=== PATIENT | male | born 1995 | race Caucasian/White ===

== ENCOUNTER 2021-12-11 02:14 | Emergency (ER) | payer OTHER ==
[~2021-12-11] VITALS: Ht 180.3 cm; Wt 77.0 kg
[2021-12-11] MEDS ORDERED: DERMABOND TOPICAL SKIN ADHESIVE TOP ONE (03:30)
[2021-12-11] MEDS ORDERED: LIDOCAINE W/EPINEPHRINE 1% 20ML VIAL SC ONE (03:30)
[2021-12-11] MEDS ORDERED: WELLTAB38 PO (04:05)
[2021-12-11 04:45] VITALS: BP 132/84
[2021-12-11] MEDS ORDERED: LEXA1TAB PO (07:10)
[2021-12-12] MEDS ORDERED: UNRESOLVED CLARIFICATION ENTRY XX SCH (00:01)
== END 2021-12-11 04:52 | disposition left against medical advice (07) ==
LOC: EDBD 02:14 → M ED 02:14
DX: S01.512A Laceration without foreign body of oral cavity, initial encounter (principal); V47.5XXA Car driver injured in collision with fixed or stationary object in traffic accident, initial encounter; Y92.410 Unspecified street and highway as the place of occurrence of the external cause; R93.0 Abnormal findings on diagnostic imaging of skull and head, not elsewhere classified; Z79.899 Other long term (current) drug therapy

== ENCOUNTER 2021-12-11 06:51 | Emergency (ER) | payer OTHER ==
[~2021-12-11] VITALS: Ht 185.4 cm; Wt 72.7 kg
[2021-12-11 06:51] VITALS: BP 135/80
[~2021-12-11 06:51] MED LIST: WELLTAB38 PO
[2021-12-11] MEDS ORDERED: LEXA1TAB PO (07:10)
== END 2021-12-11 07:46 | disposition left against medical advice (07) ==
LOC: M ED 06:51
DX: Z53.21 Procedure and treatment not carried out due to patient leaving prior to being seen by health care provider (principal)

== ENCOUNTER 2021-12-11 09:40 | Emergency (ER) | payer OTHER ==
[~2021-12-11] VITALS: Ht 185.4 cm; Wt 75.0 kg
[~2021-12-11 09:40] MED LIST changes: +LEXA1TAB PO
[2021-12-11 11:47] VITALS: BP 130/76
== END 2021-12-11 11:56 | disposition home or self-care (01) ==
LOC: M ED 09:40
DX: S09.90XA Unspecified injury of head, initial encounter (principal); V49.49XA Driver injured in collision with other motor vehicles in traffic accident, initial encounter; Y92.410 Unspecified street and highway as the place of occurrence of the external cause; Z79.899 Other long term (current) drug therapy